=== PATIENT | male | born 1960 | race Caucasian/White ===

== ENCOUNTER 2023-11-02 21:57 | Inpatient (IN) | payer MEDICARE, OTHER ==
[~2023-11-02] VITALS: Ht 188 cm; Wt 95.3 kg
[2023-11-02 22:15] LABS: BASOPHILS # (AUTO) 0.1 K/UL (0.0-0.2); EOSINOPHILS # (AUTO) 0.1 K/uL (0.0-0.7); EOSINOPHILS % (AUTO) 0.9 % (0.0-7.0); HEMATOCRIT 46.1 % (36.7-47.1); HEMOGLOBIN 15.3 g/dL (12.5-16.3); LYMPHOCYTES % (AUTO) 14.3 % (20.5-51.5); MEAN CORPUSCULAR HEMOGLOBIN 30.5 uug (23.8-33.4); MEAN CORPUSCULAR HGB CONC 33 g/dL (32.5-36.3); MEAN CORPUSCULAR VOLUME 91.9 fL (73.0-96.2); MONOCYTES # (AUTO) 0.6 K/uL (0.1-1.30); MONOCYTES % (AUTO) 8.5 % (0.0-11.0); NEUTROPHILS # (AUTO) 5.3 K/uL (1.8-8.9); NEUTROPHILS % (AUTO) 75.3 % (38.5-71.5); PLATELET COUNT (AUTO) 214 K/uL (152-348); RED BLOOD CELL COUNT(AUTO) 5.02 MIL/uL (4.06-5.63); RED CELL DISTRIBUTION WIDTH 14.6 % (12.1-16.2); WHITE BLOOD COUNT (AUTO) 7.1 K/uL (3.6-10.2)
[2023-11-02 22:17] LABS: DIFFERENTIAL COMMENT 1
[2023-11-02] MEDS ORDERED: LAMO100T2 PO (22:21)
[2023-11-02] MEDS ORDERED: METO-356 PO (22:21)
[2023-11-02] MEDS ORDERED: ROSU10TA29 PO (22:21)
[2023-11-02] MEDS ORDERED: SPIR25TA6 PO (22:21)
[2023-11-02] MEDS ORDERED: LEVO25TA9 PO (22:21)
[2023-11-02] MEDS ORDERED: LISI-782 PO (22:21)
[2023-11-02] MEDS ORDERED: OLAN20TA24 PO (22:21)
[2023-11-02] MEDS ORDERED: WARF-58 PO (22:21)
[2023-11-02 22:28] LABS: ETHANOL < 3 MG/DL (0-10)
[2023-11-02 22:41] LABS: ALANINE AMINOTRANSFERASE 45 U/L (16-63); ALBUMIN 4.2 g/dL (3.4-5.0); ALKALINE PHOSPHATASE 134 U/L (50-136); ASPARTATE AMINOTRANSFERASE 27 U/L (15-37); BILIRUBIN,DIRECT 0.2 mg/dL (0.0-0.2); BILIRUBIN,TOTAL 0.6 mg/dL (0.2-1.0); CALCIUM 9.2 mg/dL (8.5-10.1); CARBON DIOXIDE 26 mmol/L (21-32); CHLORIDE 105 mmol/L (98-107); CREATININE 1.4 mg/dL (0.6-1.3); GLUCOSE 105 mg/dL (74-106); POTASSIUM 4.3 mmol/L (3.5-5.1); SODIUM SERUM 142 mmol/L (136-145); TOTAL PROTEIN, SERUM 7.3 g/dL (6.4-8.2); UREA NITROGEN, BLOOD 26 mg/dL (7-18)
[2023-11-02 22:42] LABS: ACETAMINOPHEN < 10.0 ug/mL (10-30)
[2023-11-02 23:14] LABS: *BILIRUBIN,URIN NEGATIVE (NEGATIVE); *BLOOD, URINE 1+ (NEGATIVE); *CLARITY,URINE CLEAR (CLEAR); *COLOR,URINE YELLOW (YELLOW); *KETONES,URINE NEGATIVE (NEGATIVE); *PROTEIN,URINE NEGATIVE (NEGATIVE); LEUKOCYTE ESTERASE ,URINE NEGATIVE (NEGATIVE); NITRITE, URINE NEGATIVE (NEGATIVE); UGLUCOSE NEGATIVE (NEGATIVE)
[2023-11-02 23:20] LABS: *AMPHETAMINE, URINE NEGATIVE (NEGATIVE); *BARBITURATE, URINE NEGATIVE (NEGATIVE); *BENZODIAZEPINE, URINE NEGATIVE (NEGATIVE); *CANNABINOID, URINE NEGATIVE (NEGATIVE); *COCCAINE, URINE NEGATIVE (NEGATIVE); *OPIATE, URINE NEGATIVE (NEGATIVE); *PHENCYCLIDINE SCREEN,URINE NEGATIVE (NEGATIVE); FENTANYL, URINE NEGATIVE (NEGATIVE)
[2023-11-02 23:39] LABS: RBC,URINE 0-3 /HPF (0-3)
[2023-11-02 23:40] LABS: BACTERIA,URINE FEW /HPF (NONE SEEN); SQUAMOUS EPITHELIAL CELL,UR FEW /HPF (NONE SEEN); WBC,URINE NONE SEEN /HPF (0-3)
[2023-11-03] MEDS ORDERED: OLANZAPINE 5 MG TABLET ONE (00:06)
[2023-11-03] MEDS: OLANZAPINE 5 MG TABLET PO ONE (00:07)
[2023-11-03 01:10] VITALS: BP 115/74; TEMP 99.4; O2SAT 98
[2023-11-03] MEDS ORDERED: MISCELLANEOUS MED XX PRN (05:00)
[2023-11-03] MEDS ORDERED: ONDANSETRON 4 MG/2 ML VIAL IV PRN (05:00)
[2023-11-03] MEDS ORDERED: REMEDY ESSENTIAL ZINC PASTE 113 GM TP PRN (05:00)
[2023-11-03] MEDS ORDERED: MAGNESIUM HYDROXIDE 30 ML LIQUID UDC PO PRN (05:00)
[2023-11-03] MEDS: GUAIFENESIN/DEXTROMETHORPHAN 5 ML UDC PO PRN (06:28)
[2023-11-03 06:51] VITALS: BP 102/63; TEMP 99.1; O2SAT 94
[2023-11-03 06:51] LABS: BASOPHILS # (AUTO) 0.1 K/UL (0.0-0.2); BASOPHILS % (AUTO) 1.2 % (0.0-2.0); EOSINOPHILS # (AUTO) 0.1 K/uL (0.0-0.7); EOSINOPHILS % (AUTO) 0.9 % (0.0-7.0); HEMATOCRIT 39.2 % (36.7-47.1); HEMOGLOBIN 13.2 g/dL (12.5-16.3); LYMPHOCYTES % (AUTO) 18.3 % (20.5-51.5); MEAN CORPUSCULAR HEMOGLOBIN 30.6 uug (23.8-33.4); MEAN CORPUSCULAR HGB CONC 34 g/dL (32.5-36.3); MEAN CORPUSCULAR VOLUME 90.8 fL (73.0-96.2); MONOCYTES # (AUTO) 0.9 K/uL (0.1-1.30); MONOCYTES % (AUTO) 15.1 % (0.0-11.0); NEUTROPHILS # (AUTO) 3.7 K/uL (1.8-8.9); NEUTROPHILS % (AUTO) 64.5 % (38.5-71.5); PLATELET COUNT (AUTO) 186 K/uL (152-348); RED BLOOD CELL COUNT(AUTO) 4.32 MIL/uL (4.06-5.63); WHITE BLOOD COUNT (AUTO) 5.7 K/uL (3.6-10.2)
[2023-11-03 06:56] LABS: ALBUMIN 3.4 g/dL (3.4-5.0); BILIRUBIN,DIRECT 0.2 mg/dL (0.0-0.2); BILIRUBIN,TOTAL 0.6 mg/dL (0.2-1.0); CALCIUM 8.3 mg/dL (8.5-10.1); CREATININE 1.2 mg/dL (0.6-1.3); MAGNESIUM 2.2 mg/dL (1.8-2.4); PHOSPHOROUS 3.5 mg/dL (2.5-4.9); POTASSIUM 3.8 mmol/L (3.5-5.1); TOTAL PROTEIN, SERUM 5.8 g/dL (6.4-8.2)
[2023-11-03 07:05] LABS: THYROID STIMULATING HORMONE 3.711 mIU/mL (0.358-3.740)
[2023-11-03] MEDS ORDERED: LORAZEPAM 1 MG TABLET PO PRN (08:15)
[2023-11-03] MEDS ORDERED: ZOLPIDEM 5 MG TABLET PO PRN (08:15)
[2023-11-03] MEDS: METOPROLOL SUCCINATE XL 25 MG TAB.SR.24H PO SCH (09:00)
[2023-11-03] MEDS: LISINOPRIL 5 MG TABLET PO SCH (09:00)
[2023-11-03] MEDS: LAMOTRIGINE 100 MG TABLET PO SCH (09:30)
[2023-11-03] MEDS: OLANZAPINE 5 MG TABLET PO SCH (09:30)
[2023-11-03] MEDS: LEVOTHYROXINE SODIUM 25 MCG TABLET PO SCH (09:30)
[2023-11-03 10:25] LABS: EOSINOPHILS % (MANUAL) 1 % (0-8); LYMPHOCYTES % (MANUAL) 20 % (20-40); MONOCYTES % (MANUAL) 12 % (2-10); NEUTROPHILS % (MANUAL) 67 % (42-75); PLATELET ESTIMATE ADEQUATE
[2023-11-03 10:26] LABS: ANISOCYTOSIS 1+
[2023-11-03 11:33] VITALS: BP 101/64; TEMP 97.8; O2SAT 94
[2023-11-03 15:52] VITALS: BP 113/76; TEMP 98.9; O2SAT 93
[2023-11-03] MEDS: WARFARIN SODIUM 5 MG TABLET PO SCH (16:29)
[2023-11-03] MEDS: ACETAMINOPHEN 325 MG TABLET PO PRN (16:43)
[2023-11-03 20:00] VITALS: BP 104/66; TEMP 97.9; O2SAT 94
[2023-11-03] MEDS: QUETIAPINE FUMARATE 200 MG TABLET PO SCH (20:37)
[2023-11-03] MEDS: ATORVASTATIN 20 MG TABLET PO SCH (20:38)
[2023-11-03] MEDS: SPIRONOLACTONE 25 MG TABLET PO SCH (20:38)
[2023-11-04 06:00] VITALS: BP 103/61; TEMP 98.5; O2SAT 97
[2023-11-04 07:41] LABS: BASOPHILS # (AUTO) 0.1 K/UL (0.0-0.2); EOSINOPHILS # (AUTO) 0.1 K/uL (0.0-0.7); EOSINOPHILS % (AUTO) 1.3 % (0.0-7.0); HEMATOCRIT 40.8 % (36.7-47.1); HEMOGLOBIN 13.7 g/dL (12.5-16.3); LYMPHOCYTES # (AUTO) 0.9 K/uL (0.8-4.8); LYMPHOCYTES % (AUTO) 13.1 % (20.5-51.5); MEAN CORPUSCULAR HEMOGLOBIN 30.6 uug (23.8-33.4); MEAN CORPUSCULAR HGB CONC 34 g/dL (32.5-36.3); MONOCYTES # (AUTO) 0.9 K/uL (0.1-1.30); MONOCYTES % (AUTO) 11.9 % (0.0-11.0); NEUTROPHILS # (AUTO) 5.2 K/uL (1.8-8.9); NEUTROPHILS % (AUTO) 72.7 % (38.5-71.5); PLATELET COUNT (AUTO) 180 K/uL (152-348); RED BLOOD CELL COUNT(AUTO) 4.48 MIL/uL (4.06-5.63); RED CELL DISTRIBUTION WIDTH 14.2 % (12.1-16.2); WHITE BLOOD COUNT (AUTO) 7.2 K/uL (3.6-10.2)
[2023-11-04 07:49] LABS: DIFFERENTIAL COMMENT 1
[2023-11-04 08:17] LABS: ALBUMIN 3.4 g/dL (3.4-5.0); BILIRUBIN,TOTAL 0.6 mg/dL (0.2-1.0); CALCIUM 8.4 mg/dL (8.5-10.1); CREATININE 1.1 mg/dL (0.6-1.3); PHOSPHOROUS 3.4 mg/dL (2.5-4.9); POTASSIUM 4.2 mmol/L (3.5-5.1); TOTAL PROTEIN, SERUM 6.1 g/dL (6.4-8.2)
[2023-11-04] MEDS ORDERED: BENZOCAINE/MENTH/CETYLPYRD LOZENGE MM PRN (11:15)
[2023-11-04 11:38] VITALS: BP 104/63; TEMP 97.9; O2SAT 92
[2023-11-04 15:59] VITALS: BP 105/59; TEMP 98; O2SAT 93
[2023-11-04 20:20] VITALS: BP 106/61; TEMP 100.5; O2SAT 95
[2023-11-05 05:48] VITALS: BP 107/71; TEMP 98.2; O2SAT 95
[2023-11-05 07:32] LABS: BASOPHILS % (AUTO) 0.8 % (0.0-2.0); EOSINOPHILS # (AUTO) 0.2 K/uL (0.0-0.7); HEMOGLOBIN 13.8 g/dL (12.5-16.3); LYMPHOCYTES # (AUTO) 1.8 K/uL (0.8-4.8); LYMPHOCYTES % (AUTO) 40.2 % (20.5-51.5); MEAN CORPUSCULAR HEMOGLOBIN 30.8 uug (23.8-33.4); MEAN CORPUSCULAR HGB CONC 34 g/dL (32.5-36.3); MEAN CORPUSCULAR VOLUME 91.5 fL (73.0-96.2); MONOCYTES # (AUTO) 0.6 K/uL (0.1-1.30); MONOCYTES % (AUTO) 13.9 % (0.0-11.0); NEUTROPHILS # (AUTO) 1.9 K/uL (1.8-8.9); NEUTROPHILS % (AUTO) 41.1 % (38.5-71.5); PLATELET COUNT (AUTO) 190 K/uL (152-348); RED BLOOD CELL COUNT(AUTO) 4.48 MIL/uL (4.06-5.63); RED CELL DISTRIBUTION WIDTH 14.2 % (12.1-16.2); WHITE BLOOD COUNT (AUTO) 4.6 K/uL (3.6-10.2)
[2023-11-05 07:33] LABS: ALBUMIN 3.4 g/dL (3.4-5.0); BILIRUBIN,TOTAL 0.5 mg/dL (0.2-1.0); CALCIUM 8.6 mg/dL (8.5-10.1); CREATININE 1.2 mg/dL (0.6-1.3); MAGNESIUM 2.4 mg/dL (1.8-2.4); PHOSPHOROUS 3.6 mg/dL (2.5-4.9); POTASSIUM 4.9 mmol/L (3.5-5.1); TOTAL PROTEIN, SERUM 6.2 g/dL (6.4-8.2)
[2023-11-05 07:43] LABS: DIFFERENTIAL COMMENT 1
[2023-11-05 11:59] VITALS: BP 105/70; TEMP 98.3; O2SAT 96
[2023-11-05 15:59] VITALS: BP 109/69; TEMP 97.9; O2SAT 96
[2023-11-05 20:03] VITALS: BP 113/66; TEMP 97.6; O2SAT 96
[2023-11-06 05:50] VITALS: BP 108/58; TEMP 97.5; O2SAT 97
[2023-11-06 07:30] LABS: EOSINOPHILS # (AUTO) 0.2 K/uL (0.0-0.7); EOSINOPHILS % (AUTO) 4.2 % (0.0-7.0); HEMOGLOBIN 14.1 g/dL (12.5-16.3); LYMPHOCYTES # (AUTO) 1.6 K/uL (0.8-4.8); LYMPHOCYTES % (AUTO) 38.1 % (20.5-51.5); MEAN CORPUSCULAR HEMOGLOBIN 30.9 uug (23.8-33.4); MEAN CORPUSCULAR HGB CONC 34 g/dL (32.5-36.3); MEAN CORPUSCULAR VOLUME 89.9 fL (73.0-96.2); MONOCYTES # (AUTO) 0.4 K/uL (0.1-1.30); MONOCYTES % (AUTO) 10.3 % (0.0-11.0); NEUTROPHILS % (AUTO) 46.4 % (38.5-71.5); PLATELET COUNT (AUTO) 193 K/uL (152-348); RED BLOOD CELL COUNT(AUTO) 4.56 MIL/uL (4.06-5.63); RED CELL DISTRIBUTION WIDTH 13.8 % (12.1-16.2); WHITE BLOOD COUNT (AUTO) 4.3 K/uL (3.6-10.2)
[2023-11-06 07:35] LABS: DIFFERENTIAL COMMENT 1
[2023-11-06 07:42] LABS: CALCIUM 8.6 mg/dL (8.5-10.1); CREATININE 1.1 mg/dL (0.6-1.3); MAGNESIUM 2.1 mg/dL (1.8-2.4); PHOSPHOROUS 3.2 mg/dL (2.5-4.9); POTASSIUM 3.8 mmol/L (3.5-5.1)
[2023-11-06 07:46] LABS: C-REACTIVE PROTEIN 2.5 mg/dL (0.00-0.30)
[2023-11-06 11:16] VITALS: BP 110/76; TEMP 97.6; O2SAT 96
[2023-11-06] MEDS ORDERED: MAGN400O6 PO (14:17)
[2023-11-06] MEDS ORDERED: ACET325T53 PO (14:17)
[2023-11-06] MEDS ORDERED: ATOR10TA PO (14:17)
[2023-11-06] MEDS ORDERED: QUET200T31 PO (14:17)
[2023-11-06] MEDS ORDERED: ZOLP5TAB2 PO (14:17)
[2023-11-06] MEDS ORDERED: OLAN5TAB70 PO (14:17)
[2023-11-06] MEDS ORDERED: GUAI5SYR PO (14:17)
[2023-11-06] MEDS ORDERED: LAMO100T2 PO (14:17)
[2023-11-06] MEDS ORDERED: LORA-259 PO (14:17)
[2023-11-06] MEDS ORDERED: ATOR20TA PO (17:12)
== END 2023-11-06 15:45 | DRG 177 ==
LOC: ER 22:08 → MEDSURG3 23:30
PROVIDERS: ADMIT Nurse Practitioner Family; ATTEND Internal Medicine
DX: U07.1 COVID-19 (principal); N17.0 Acute kidney failure with tubular necrosis; F31.5 Bipolar disorder, current episode depressed, severe, with psychotic features; R45.851 Suicidal ideations; J40 Bronchitis, not specified as acute or chronic; E03.9 Hypothyroidism, unspecified; E66.9 Obesity, unspecified; Z68.27 Body mass index [BMI] 27.0-27.9, adult; Z79.890 Hormone replacement therapy; E78.5 Hyperlipidemia, unspecified; Z95.2 Presence of prosthetic heart valve; Z84.1 Family history of disorders of kidney and ureter; Z81.1 Family history of alcohol abuse and dependence; N18.30 Chronic kidney disease, stage 3 unspecified; I12.9 Hypertensive chronic kidney disease with stage 1 through stage 4 chronic kidney disease, or unspecified chronic kidney disease; Z88.6 Allergy status to analgesic agent; Z88.5 Allergy status to narcotic agent; Z88.8 Allergy status to other drugs, medicaments and biological substances; Z91.018 Allergy to other foods; I48.91 Unspecified atrial fibrillation; Z79.01 Long term (current) use of anticoagulants; F41.9 Anxiety disorder, unspecified; F10.21 Alcohol dependence, in remission
CPT/HCPCS: 36415; 70030-TC; 71045; 83735; 84100; 84443; 85025; 85610; 86140; 93005; A4663; G0378; G0480

== ENCOUNTER 2023-11-06 16:06 | Inpatient (IN) | payer MEDICARE, OTHER ==
[~2023-11-06] VITALS: Ht 188 cm; Wt 95.3 kg
[~2023-11-06 16:06] MED LIST: ACET325T53 PO; ATOR10TA PO; GUAI5SYR PO; LAMO100T2 PO; LEVO25TA9 PO; LISI-782 PO; LORA-259 PO; MAGN400O6 PO; METO-356 PO; OLAN20TA24 PO; OLAN5TAB70 PO; QUET200T31 PO; ROSU10TA29 PO; SPIR25TA6 PO; WARF-58 PO; ZOLP5TAB2 PO
[2023-11-06] MEDS ORDERED: ATOR20TA PO (17:12)
[2023-11-06] MEDS ORDERED: ACETAMINOPHEN 325 MG TABLET-SA PATIENTS-PAIN ONLY PO PRN (18:45)
[2023-11-06] MEDS ORDERED: ZOLPIDEM 5 MG TABLET PO PRN (18:45)
[2023-11-06] MEDS ORDERED: GUAIFENESIN/DEXTROMETHORPHAN 5 ML UDC PO PRN (18:45)
[2023-11-06] MEDS ORDERED: ACETAMINOPHEN 325 MG TABLET PO PRN (19:00)
[2023-11-06 20:06] VITALS: BP 116/66; TEMP 97.9; O2SAT 97
[2023-11-06] MEDS: ATORVASTATIN 20 MG TABLET PO SCH (20:18)
[2023-11-06] MEDS: SPIRONOLACTONE 25 MG TABLET PO SCH (20:18)
[2023-11-06] MEDS: LAMOTRIGINE 100 MG TABLET PO SCH (20:18)
[2023-11-06] MEDS: WARFARIN SODIUM 5 MG TABLET PO SCH (20:24)
[2023-11-06] MEDS: LORAZEPAM 1 MG TABLET PO PRN (20:25)
[2023-11-06] MEDS: QUETIAPINE FUMARATE 200 MG TABLET PO SCH (20:25)
[2023-11-07 06:19] VITALS: BP 115/53; TEMP 98.3; O2SAT 97
[2023-11-07] MEDS: LEVOTHYROXINE SODIUM 25 MCG TABLET PO SCH (06:34)
[2023-11-07 08:00] VITALS: BP 129/72; TEMP 97.4; O2SAT 97
[2023-11-07] MEDS: METOPROLOL SUCCINATE XL 25 MG TAB.SR.24H PO SCH (08:36)
[2023-11-07] MEDS ORDERED: LAMOTRIGINE 100 MG TABLET PO SCH (09:00)
[2023-11-07] MEDS ORDERED: OLANZAPINE 5 MG TABLET PO SCH ×2 (09:00)
[2023-11-07 12:00] VITALS: BP 102/56; TEMP 97; O2SAT 97
[2023-11-07 16:00] VITALS: BP 104/75; TEMP 98.4; O2SAT 98
[2023-11-07] MEDS: WARFARIN SODIUM 4 MG TABLET PO SCH (16:18)
[2023-11-07] MEDS: OLANZAPINE 5 MG TABLET PO SCH (17:34)
[2023-11-07] MEDS: LAMOTRIGINE 100 MG TABLET PO SCH (17:34)
[2023-11-07 20:00] VITALS: BP 107/60; TEMP 98.4; O2SAT 95
[2023-11-07] MEDS ORDERED: QUETIAPINE FUMARATE 200 MG TABLET PO SCH (21:00)
[2023-11-07] MEDS: QUETIAPINE FUMARATE 200 MG TABLET PO SCH (21:03)
[2023-11-08 06:00] VITALS: BP 95/59; TEMP 97.9; O2SAT 97
[2023-11-08 08:14] VITALS: BP 123/84; TEMP 97.7; O2SAT 96
[2023-11-08 11:26] VITALS: BP 129/89; TEMP 98.3; O2SAT 99
[2023-11-08 16:40] VITALS: BP 112/64; TEMP 98.2; O2SAT 96
[2023-11-08] MEDS ORDERED: WARFARIN SODIUM 4 MG TABLET PO SCH (17:00)
[2023-11-08 19:00] VITALS: BP 110/71; TEMP 98.2; O2SAT 95
[2023-11-09 06:00] VITALS: BP 111/73; TEMP 97.6; O2SAT 96
[2023-11-09] MEDS: LAMOTRIGINE 100 MG TABLET PO SCH (09:05)
[2023-11-09 09:19] VITALS: BP 122/76; TEMP 97.5; O2SAT 96
[2023-11-09 15:49] VITALS: BP 102/65; TEMP 98.6; O2SAT 95
[2023-11-09 17:12] VITALS: BP 128/95; TEMP 98.5; O2SAT 98
[2023-11-09] MEDS: QUETIAPINE FUMARATE 100 MG TABLET PO SCH (20:37)
[2023-11-09] MEDS ORDERED: QUETIAPINE FUMARATE 200 MG TABLET PO SCH (21:00)
[2023-11-09 21:14] VITALS: BP 107/70; TEMP 98.4; O2SAT 97
[2023-11-09 21:21] VITALS: TEMP 98.4
[2023-11-10 08:31] LABS: BASOPHILS % (AUTO) 0.8 % (0.0-2.0); EOSINOPHILS # (AUTO) 0.1 K/uL (0.0-0.7); EOSINOPHILS % (AUTO) 1.8 % (0.0-7.0); HEMOGLOBIN 14.1 g/dL (12.5-16.3); LYMPHOCYTES # (AUTO) 1.4 K/uL (0.8-4.8); LYMPHOCYTES % (AUTO) 29.2 % (20.5-51.5); MEAN CORPUSCULAR HEMOGLOBIN 30.7 uug (23.8-33.4); MEAN CORPUSCULAR HGB CONC 34 g/dL (32.5-36.3); MEAN CORPUSCULAR VOLUME 89.3 fL (73.0-96.2); MONOCYTES # (AUTO) 0.4 K/uL (0.1-1.30); NEUTROPHILS % (AUTO) 60.2 % (38.5-71.5); PLATELET COUNT (AUTO) 247 K/uL (152-348); RED BLOOD CELL COUNT(AUTO) 4.59 MIL/uL (4.06-5.63); RED CELL DISTRIBUTION WIDTH 13.4 % (12.1-16.2); WHITE BLOOD COUNT (AUTO) 4.9 K/uL (3.6-10.2)
[2023-11-10 08:38] LABS: DIFFERENTIAL COMMENT 1
[2023-11-10 08:40] LABS: ALBUMIN 3.5 g/dL (3.4-5.0); BILIRUBIN,TOTAL 0.8 mg/dL (0.2-1.0); CALCIUM 8.6 mg/dL (8.5-10.1); CREATININE 1.2 mg/dL (0.6-1.3); MAGNESIUM 2.2 mg/dL (1.8-2.4); PHOSPHOROUS 3.4 mg/dL (2.5-4.9); TOTAL PROTEIN, SERUM 6.2 g/dL (6.4-8.2)
[2023-11-10 08:44] VITALS: BP 113/70; TEMP 98; O2SAT 98
[2023-11-10 15:28] VITALS: BP 97/71; TEMP 98; O2SAT 96
[2023-11-10] MEDS ORDERED: WARFARIN SODIUM 7.5 MG TABLET PO SCH (17:00)
[2023-11-10] MEDS: WARFARIN SODIUM 2 MG TABLET PO SCH (17:33)
[2023-11-10] MEDS: WARFARIN SODIUM 5 MG TABLET PO SCH (17:34)
[2023-11-10 19:59] VITALS: BP 111/68; TEMP 98.1; O2SAT 96
[2023-11-11 08:00] VITALS: BP 113/70; TEMP 98; O2SAT 96
[2023-11-11] MEDS: ENOXAPARIN SODIUM 100 MG/ML DISP.SYRIN SQ SCH (11:22)
[2023-11-11 15:28] VITALS: BP 108/64; TEMP 98; O2SAT 96
[2023-11-11] MEDS: WARFARIN SODIUM 5 MG TABLET PO SCH (17:04)
[2023-11-11 20:00] VITALS: BP 117/70; TEMP 98.1; O2SAT 96
[2023-11-12] MEDS: MAGNESIUM HYDROXIDE 30 ML LIQUID UDC PO PRN (06:03)
[2023-11-12 08:01] VITALS: BP 114/76; TEMP 98; O2SAT 96
[2023-11-12] MEDS: MIRALAX 17 GM POWD.PACK PO PRN (09:29)
[2023-11-12 15:37] VITALS: BP 97/54; TEMP 98; O2SAT 99
[2023-11-12] MEDS ORDERED: WARFARIN SODIUM 5 MG TABLET PO ONE (17:00)
[2023-11-12 20:19] VITALS: BP 106/64; TEMP 98; O2SAT 96
[2023-11-13 07:54] VITALS: BP 108/65; TEMP 98; O2SAT 96
[2023-11-13] MEDS: LAMOTRIGINE 100 MG TABLET PO SCH (09:21)
[2023-11-13] MEDS ORDERED: BISACODYL 10 MG SUPP.RECT RC PRN (16:00)
[2023-11-13 16:04] VITALS: BP 102/67; TEMP 98; O2SAT 98
[2023-11-13 21:03] VITALS: BP 119/81; TEMP 97.6; O2SAT 95
[2023-11-14 04:00] VITALS: BP 116/71; TEMP 97.7; O2SAT 96
[2023-11-14] MEDS: LACTULOSE 20 G/30 ML LIQUID UDC PO SCH (07:55)
[2023-11-14 08:00] VITALS: BP 126/88; TEMP 97.7; O2SAT 97
[2023-11-14 12:01] VITALS: BP 139/89; TEMP 97.6; O2SAT 98
[2023-11-14 16:30] VITALS: BP 105/68; TEMP 98; O2SAT 96
[2023-11-14] MEDS: OLANZAPINE 10 MG VIAL IM ONE (17:49)
[2023-11-14 18:00] VITALS: BP 119/74; TEMP 98; O2SAT 97
[2023-11-14 20:05] VITALS: BP 108/63; TEMP 98.6; O2SAT 96
[2023-11-15 07:50] VITALS: BP 123/88; TEMP 97.7; O2SAT 95
[2023-11-15 11:58] VITALS: BP 113/77; TEMP 97.5; O2SAT 95
[2023-11-15 15:55] VITALS: BP 110/83; TEMP 97.8; O2SAT 96
[2023-11-15] MEDS: OLANZAPINE 5 MG TABLET PO SCH (16:35)
[2023-11-15] MEDS: WARFARIN SODIUM 4 MG TABLET PO SCH (16:36)
[2023-11-15] MEDS: WARFARIN SODIUM 5 MG TABLET PO SCH (16:37)
[2023-11-15 19:00] VITALS: BP 104/64; TEMP 97.7; O2SAT 95
[2023-11-16 08:15] VITALS: BP 117/64
== END 2023-11-16 11:30 | DRG 885 ==
LOC: MEDSURG3 16:06 → UNDOADMIN 16:06 → GPSOV3 16:11 → GPS 11-09 17:07 → GPSOV3 11-13 18:38
PROVIDERS: ADMIT Psychiatry & Neurology Psychiatry; ATTEND Internal Medicine
DX: F31.64 Bipolar disorder, current episode mixed, severe, with psychotic features (principal); U07.1 COVID-19; R45.851 Suicidal ideations; Z95.2 Presence of prosthetic heart valve; E78.5 Hyperlipidemia, unspecified; E03.9 Hypothyroidism, unspecified; Z79.890 Hormone replacement therapy; E66.9 Obesity, unspecified; Z68.27 Body mass index [BMI] 27.0-27.9, adult; I48.91 Unspecified atrial fibrillation; F10.11 Alcohol abuse, in remission; Z79.01 Long term (current) use of anticoagulants; Z81.1 Family history of alcohol abuse and dependence; K59.00 Constipation, unspecified; J40 Bronchitis, not specified as acute or chronic; M89.8X9 Other specified disorders of bone, unspecified site; F41.9 Anxiety disorder, unspecified
CPT/HCPCS: 36415; 83735; 84100; 85025; 85610; A4663; J1650; J2358